=== PATIENT | male | born 1975 | race Caucasian/White ===

== ENCOUNTER 2024-10-22 12:17 | Emergency (ER) | payer BC, MEDICAID ==
[~2024-10-22] VITALS: Ht 175.3 cm; Wt 91.0 kg
[2024-10-22 12:20] VITALS: BP 106/83; O2SAT 96
[2024-10-22 12:27] VITALS: PULSE 120; RESP 16; O2SAT 96
[2024-10-22] MEDS: ACETAMINOPHEN 325MG TABLET PO ONE (13:51)
[2024-10-22 13:52] LABS: CHLORIDE 96 mEq/L (98-107); POTASSIUM 3.4 mEq/L (3.5-5.1); SODIUM 132 mEq/L (136-145)
[2024-10-22 13:53] LABS: CALCIUM 9.4 mg/dL (8.7-10.4); CARBON DIOXIDE 27 mEq/L (21-32)
[2024-10-22 13:58] LABS: GLUCOSE 118 mg/dL (70-105); UREA NITROGEN BLOOD 10 mg/dL (9-23)
[2024-10-22 14:00] LABS: ALANINE AMINOTRANSFERASE 109 IU/L (10-49); ALBUMIN 4.7 g/dL (3.2-4.8); ASPARTATE AMINOTRANSFERASE 68 IU/L (<34); BILIRUBIN TOTAL 0.5 mg/dL (0.1-1.0)
[2024-10-22 14:30] LABS: HEMATOCRIT. 42.9 % (42.0-52.0); HEMOGLOBIN. 14.8 g/dL (14.0-18.0); MEAN CORPUSCULAR HEMOGLOBIN 32.3 pg (28.0-32.0); MEAN CORPUSCULAR HGB CONC 34.4 g/dL (31.0-37.0); MEAN CORPUSCULAR VOLUME 93.9 fL (80.0-94.0); MEAN PLATELET VOLUME 9.2 fl (7.4-10.4); PLATELET 153 x1000/uL (130-400); RED BLOOD CELL COUNT 4.57 mill/uL (4.7-6.1); RED CELL DISTRIBUTION WIDTH 12.4 % (11.6-14.6); WHITE BLOOD COUNT 5.9 x1000/uL (4.5-11.0)
[2024-10-22 14:36] LABS: DIFFERENTIAL COMMENT 1
[2024-10-22 15:37] LABS: PLATELET ESTIMATE SLIGHTLY DECREASED
[2024-10-22] MEDS ORDERED: IBUP-2029 MT (16:00)
[2024-10-22] MEDS ORDERED: TAM75 MT (16:00)
== END 2024-10-22 16:17 | disposition home or self-care (01) ==
LOC: ER 12:17
DX: B34.9 Viral infection, unspecified (principal); I49.9 Cardiac arrhythmia, unspecified; Z68.29 Body mass index [BMI] 29.0-29.9, adult
CPT/HCPCS: 36415; 71045; 80053; 83605; 85025; 93005; 99285